=== PATIENT | female | born 1990 | race Caucasian/White ===

== ENCOUNTER 2024-11-27 07:11 | Emergency (ER) | payer SELFPAY ==
[2024-11-27 07:20] VITALS: BP 119/76; PULSE 80; RESP 18; TEMP 36.1; O2SAT 99; BMI 32.1
--- NOTE | 2024-11-27 07:35 | ED.EAR ---
HPI - Ear Problem General Chief complaint: Ear Stated complaint: something stuck in ear Time Seen by Provider: 11/27/24 07:20 Source: patient Mode of arrival: Ambulatory History of Present Illness HPI Narrative: Patient complains of left ear discomfort and decreased hearing for the past 3-5 days. Does use Q-tips but did not recall any injury to the ear. Has not been swimming recently. No fever chills. No ear discharge or bleeding. Patient denies any nausea or dizziness. Related Data Previous Rx's Medication Instructions Recorded ciprofloxacin 0.2 %-hydrocortisone 3 drp EAR-LEFT TID 7 days #10 mL 11/27/24 1 % ear drops,suspension (Cipro HC) Allergies Allergy/AdvReac Type Severity Reaction Status Date / Time No Known Drug Allergies Allergy Verified 11/27/24 07:20 Review of Systems Review of Systems Narrative: GENERAL: Negative chills, fatigue, malaise, fever, sweats. HEENT: Negative sinus pain, positive ear pain, negative sore throat RESPIRATORY: Negative dyspnea, cough CARDIOVASCULAR: Negative chest pain, palpitations GASTROINTESTINAL: Negative nausea, vomiting, abdominal pain : Negative dysuria, frequency, hematuria MUSCULOSKELETAL: Negative muscle or bony pain SKIN: Negative rash, skin lesions NEUROLOGIC: Negative weakness, numbness ROS Unobtainable: All systems reviewed & are unremarkable except as noted in HPI and below Patient History Social History Smoking Status: Never smoker Smoking Status: Never smoker Exam Narrative Exam Narrative: GENERAL: in no distress, not toxic not dyspneic HEAD: Normocephalic. EYES: Pupils equal round ENT: Mucous membranes moist. Examination right ear. No tragus tenderness. No canal erythema edema. No discharge in the ear. No wax impaction. TM is clear no effusion or erythema Examination of the left ear mild tragus tenderness. There is mild/moderate erythema edema of the canal but no discharge. TM is visualized. Not occluded by ear wax. There was no erythema edema or bulging. Patient can hear left ear whispering ?99 ?and rubbing of fingertips. NEURO: AOx4. SKIN: Warm and dry PSYCH: Not anxious, is cooperative Initial Vital Signs Initial Vital Signs: Vital Signs Temperature 97.0 F L 11/27/24 07:20 Pulse Rate 80 11/27/24 07:20 Respiratory Rate 18 11/27/24 07:20 Blood Pressure 119/76 11/27/24 07:20 Pulse Oximetry 99 11/27/24 07:20 Oxygen Delivery Method Room Air 11/27/24 07:20 Course Orders Ordered: Discontinued Medications Ciprofloxacin/Dexamethasone (Ciprofloxacin/Dexameth Otic Susp) 4 drops EAR-LEFT NOW ONE Stop: 11/27/24 07:36 Last Admin: 11/27/24 08:09 Dose: 4 drop Documented By: KATHLEEN Vital Signs Vital signs: Vital Signs - 8 hr 11/27/24 07:20 11/27/24 08:17 Temperature 97.0 F L Pulse Rate 80 74 Respiratory Rate 18 18 Blood Pressure 119/76 Pulse Oximetry 99 98 Oxygen Delivery Method Room Air Room Air Medical Decision Making [facility] Narrative Medical decision making narrative: Patient complains of left ear discomfort and decreased hearing for the past 3-5 days. Does use Q-tips but did not recall any injury to the ear. Has not been swimming recently. No fever chills. No ear discharge or bleeding. Patient denies any dizziness or nausea. After history and exam, exam is reassuring. No blood work or imaging indicated. Ciprodex ear drops have been ordered. [facility] Medical records reviewed: No recent visit for this complaint Differential considered: Includes but not limited to otitis media otitis externa cerumen impaction tympanic membrane rupture Treatments: Ciprodex ear drops Re-evaluations: Reviewed with patient exam findings and treatment plan. She agrees. Return precautions reviewed. She desires discharge home. Discussion: Appropriate for discharge home exam is reassuring. Return precautions reviewed. ENT referral provided. Work note provided. She desires discharge home. Reviewed with patient to be very careful avoiding moisture/water in the ear. Diagnosis: Otitis externa Discharge Plan Departure Patient Disposition: Home Clinical Impression: Otitis externa Qualifiers: Otitis externa type: unspecified type Chronicity: acute Laterality: left Qualified Code(s): H60.502 - Unspecified acute noninfective otitis externa, left ear Instructions: How to Instill Ear Drops, DI for Otitis Externa Activity Restrictions/Additional Instructions: Please call [facility] today for follow up within a week. Please avoid any moisture water into your ears. Prescription for ear drops have been provided for you. Work note has been provided for you. Return if worse if any questions or concerns. You are being treated for swimmer's ear/otitis externa of the left ear. Prescriptions: New Cipro HC 0.2-1 % drops,suspension 3 drp EAR-LEFT TID 7 Days Qty: 10 0RF Referrals: Chin Centeno MD [Physician] - Stand Alone Forms: Patient Portal/API/Survey, Work Release Note
[2024-11-27] MEDS: CIPROFLOXACIN/DEXAMETH OTIC SUSP 4 DROPS EAR-LEFT (08:09)
[2024-11-27 08:17] VITALS: PULSE 74; RESP 18; O2SAT 98
== END 2024-11-27 08:17 | disposition home or self-care (01) ==
PROVIDERS: Emergency Provider Emergency Medicine
DX: H60.502 Unspecified acute noninfective otitis externa, left ear (principal)
CPT/HCPCS: 99282